=== PATIENT | male | born 1960 | race African-American/Black ===

== ENCOUNTER 2019-11-14 19:16 | Emergency (ER) | payer SELFPAY ==
[~2019-11-14] VITALS: Ht 188 cm; Wt 73.0 kg
[2019-11-14 19:29] VITALS: BP 164/88
[2019-11-14] MEDS ORDERED: diphenhydrAMINE HCL 25 MG CAPSULE ONE (19:38)
[2019-11-14] MEDS ORDERED: DIPHENHYDRAMINE HCL 12.5 MG/5 ML UDC PO ONE (20:00)
--- NOTE | 2019-11-14 20:01 | NUR ---
PATIENT GIVEN BUS DIRECTIONS TO PATIENT'S DESIRED DESTINATION.
--- NOTE | 2019-11-14 20:01 | NUR ---
Patient discharged to home in stable condition. Written and verbal after care instructions given. Patient verbalizes understanding of instruction.
== END 2019-11-14 20:01 | disposition home or self-care (01) ==
LOC: ER 19:16
DX: S70.362A Insect bite (nonvenomous), left thigh, initial encounter (principal); S70.361A Insect bite (nonvenomous), right thigh, initial encounter; S30.860A Insect bite (nonvenomous) of lower back and pelvis, initial encounter; Z59.0 Homelessness; W57.XXXA Bitten or stung by nonvenomous insect and other nonvenomous arthropods, initial encounter; Y93.89 Activity, other specified; Y92.89 Other specified places as the place of occurrence of the external cause; Y99.8 Other external cause status
CPT/HCPCS: Q0163 ×3